=== PATIENT | female | born 1995 | race Caucasian/White ===

== ENCOUNTER 2018-04-03 13:17 | Emergency (ER) | payer BC, OTHER ==
[~2018-04-03] VITALS: Ht 162.6 cm; Wt 51.3 kg
--- NOTE | 2018-04-03 13:44 | ED General ---
General Stated Complaint: LUPUS FLARE UP/N/V/ NEG FLU TEST Source of Information: Patient Exam Limitations: No Limitations History of Present Illness Date Seen by Provider: Apr 03, 2018 Time Seen by Provider: 13:40 Initial Comments To ER with nausea and vomiting when she tries to eat, reduced urine output to the tune of about one episode of urination for 24 hour period for the past 2 days, general malaise and headache. This began on 03/31/18 when she developed a urinary tract infection. She went to urgent care [place] and was given an antibiotic but she does not know the name of it. She believes the urinary tract infection has caused her lupus to flareup. She is still on antibiotics for the urinary tract infection. She denies fevers chills or cough. She does have some rhinorrhea but no sore throat. States her primary care provider is Dr. Tom in [facility]. She is not currently on any immunomodulators or immunosuppressants for the lupus. Timing/Duration: 2-3 Days Severity: Moderate Associated Systoms: Headaches, Malaise, Nausea/Vomiting Allergies and Home Medications Allergies Coded Allergies: No Known Drug Allergies (Unverified , 04/03/18) Home Medications Cefdinir 300 Mg Capsule, 300 MG PO BID Prescribed by: BREANN ACOSTA on 04/03/18 1608 Ondansetron 8 Mg Tab.rapdis, 8 MG PO Q6H PRN for NAUSEA/VOMITING Prescribed by: BREANN ACOSTA on 04/03/18 1608 Prednisone 10 Mg Tab.ds.pk, 10 MG PO UD Take 6 tabs(60mg)daily,decrease by 1 tab(10MG)daily. Prescribed by: BREANN ACOSTA on 04/03/18 1608 Patient Home Medication List Home Medication List Reviewed: Yes Review of Systems Review of Systems Constitutional: see HPI, malaise, weakness EENTM: see HPI Respiratory: no symptoms reported Cardiovascular: no symptoms reported Genitourinary: no symptoms reported Musculoskeletal: no symptoms reported Skin: no symptoms reported Psychiatric/Neurological: No Symptoms Reported, Headache Hematologic/Lymphatic: No Symptoms Reported Past Pxwggfy-Cvykgo-Ysspvr Hx Patient Social History Recent Foreign Travel: No Contact w/Someone Who Travel: No Physical Exam Vital Signs Vital Signs - First Documented 04/03/18 13:31 Temp 98.1 Pulse 110 Resp 16 B/P (MAP) 116/71 (86) Pulse Ox 98 Capillary Refill : Height, Weight, BMI Height: '" Weight: lbs. oz. kg; BMI Method: General Appearance: No Apparent Distress, WD/WN Eyes: Bilateral Eye Normal Inspection, Bilateral Eye PERRL, Bilateral Eye EOMI HEENT: PERRL/EOMI, TMs Normal, Normal ENT Inspection, Pharynx Normal Neck: Full Range of Motion, Normal Inspection Respiratory: Normal Breath Sounds, No Accessory Muscle Use, No Respiratory Distress Cardiovascular: Normal Peripheral Pulses, Tachycardia Gastrointestinal: Normal Bowel Sounds, Non Tender, Soft Extremity: Normal Capillary Refill, Normal Inspection Neurologic/Psychiatric: Alert, Oriented x3, No Motor/Sensory Deficits Skin: Normal Color, Warm/Dry Progress/Results/Core Measures Suspected Sepsis SIRS Temperature: Pulse: Respiratory Rate: Laboratory Tests 04/03/18 11:39: White Blood Count 4.5 Blood Pressure / Mean: Laboratory Tests 04/03/18 11:39: Creatinine 0.72, Platelet Count 143, Total Bilirubin 0.6 Results/Orders Lab Results Laboratory Tests Test 04/03/18 11:39 04/03/18 15:35 Range/Units White Blood Count 4.5 4.3-11.0 10^3/uL Red Blood Count 4.57 4.35-5.85 10^6/uL Hemoglobin 12.1 11.5-16.0 G/DL Hematocrit 37 35-52 % Mean Corpuscular Volume 81 80-99 FL Mean Corpuscular Hemoglobin 27 25-34 PG Mean Corpuscular Hemoglobin Concent 33 32-36 G/DL Red Cell Distribution Width 15.1 H 10.0-14.5 % Platelet Count 143 130-400 10^3/uL Mean Platelet Volume 10.5 H 7.4-10.4 FL Neutrophils (%) (Auto) 79 H 42-75 % Lymphocytes (%) (Auto) 16 12-44 % Monocytes (%) (Auto) 5 0-12 % Eosinophils (%) (Auto) 0 0-10 % Basophils (%) (Auto) 0 0-10 % Neutrophils # (Auto) 3.5 1.8-7.8 X 10^3 Lymphocytes # (Auto) 0.7 L 1.0-4.0 X 10^3 Monocytes # (Auto) 0.2 0.0-1.0 X 10^3 Eosinophils # (Auto) 0.0 0.0-0.3 10^3/uL Basophils # (Auto) 0.0 0.0-0.1 10^3/uL Sodium Level 132 L 135-145 MMOL/L Potassium Level 4.1 3.6-5.0 MMOL/L Chloride Level 100 98-107 MMOL/L Carbon Dioxide Level 20 L 21-32 MMOL/L Anion Gap 12 5-14 MMOL/L Blood Urea Nitrogen 8 7-18 MG/DL Creatinine 0.72 0.60-1.30 MG/DL Estimat Glomerular Filtration Rate > 60 BUN/Creatinine Ratio 11 Glucose Level 88 70-105 MG/DL Calcium Level 9.2 8.5-10.1 MG/DL Corrected Calcium 9.1 8.5-10.1 MG/DL Total Bilirubin 0.6 0.1-1.0 MG/DL Aspartate Amino Transf (AST/SGOT) 30 5-34 U/L Alanine Aminotransferase (ALT/SGPT) 11 0-55 U/L Alkaline Phosphatase 51 40-136 U/L Total Protein 8.9 H 6.4-8.2 GM/DL Albumin 4.1 3.2-4.5 GM/DL Serum Test, Qualitative NEGATIVE NEGATIVE Urine Color YELLOW Urine Clarity CLEAR Urine pH 6 5-9 Urine Specific Milo 1.020 1.016-1.022 Urine Protein 2+ H NEGATIVE Urine Glucose (UA) NEGATIVE NEGATIVE Urine Ketones 4+ H NEGATIVE Urine Nitrite POSITIVE H NEGATIVE Urine Bilirubin NEGATIVE NEGATIVE Urine Urobilinogen 1 NORMAL MG/DL Urine Leukocyte Esterase 3+ H NEGATIVE Urine RBC (Auto) 1+ H NEGATIVE Urine RBC 2-5 H /HPF Urine WBC 25-50 H /HPF Urine Squamous Epithelial Cells 0-2 /HPF Urine Crystals NONE /LPF Urine Bacteria LARGE H /HPF Urine Casts NONE /LPF Urine Mucus NEGATIVE /LPF Urine Culture Indicated YES My Orders Orders - BREANN ACOSTA APRN Ua Culture If Indicated (04/03/18 13:38) Cbc With Automated Diff (04/03/18 13:38) Comprehensive Metabolic Panel (04/03/18 13:38) Iv Heplock-Insert (Order) (04/03/18 13:38) Hcg,Qualitative Serum (04/03/18 13:38) Ondansetron Injection (Zofran Injectio (04/03/18 13:45) Ketorolac Injection (Toradol Injection) (04/03/18 13:45) Lactated Ringers (Lr 1000 Ml Iv Solution (04/03/18 13:45) Fentanyl Injection (Sublimaze Injection (04/03/18 13:45) Lactated Ringers (Lr 1000 Ml Iv Solution (04/03/18 15:00) Methylprednisolone Sod Succ (Solu-Medrol (04/03/18 15:00) Butalbital/Apap/Caffeine Tab (Fioricet T (04/03/18 15:00) Urine Culture (04/03/18 15:35) Ceftriaxone For Iv Use (Rocephin For I (04/03/18 16:15) Medications Given in ED Current Medications Medications Dose Ordered Sig/Iris Route Start Time Stop Time Status Last Admin Dose Admin Acetaminophen/ Butalbital/ Caffeine 1 tab ONCE PRN PO 04/03/18 15:00 04/03/18 14:59 1 TAB Fentanyl Citrate 50 mcg ONCE ONCE IVP 04/03/18 13:45 04/03/18 13:46 DC 04/03/18 13:49 50 MCG Ketorolac Tromethamine 15 mg ONCE ONCE IVP 04/03/18 13:45 04/03/18 13:46 DC 04/03/18 13:49 15 MG Methylprednisolone Sodium Succinate 125 mg ONCE ONCE IVP 04/03/18 15:00 04/03/18 15:01 DC 04/03/18 14:59 125 MG Ondansetron HCl 8 mg ONCE ONCE IVP 04/03/18 13:45 04/03/18 13:46 DC 04/03/18 13:49 8 MG Vital Signs/I&O 04/03/18 13:31 Temp 98.1 Pulse 110 Resp 16 B/P (MAP) 116/71 (86) Pulse Ox 98 Capillary Refill : Departure Communication (Admissions) She states that when she gets the "lupus flare" like this she typically gets a steroid prescription which helps with her symptoms quite a bit. Impression Primary Impression: Urinary tract infection Additional Impression: Lupus Disposition: 01 HOME, SELF-CARE Condition: Stable Departure-Patient Inst. Decision time for Depature: 16:05 Referrals: NO,LOCAL PHYSICIAN (PCP/Family) Primary Care Physician Patient Instructions: Urinary Tract Infection, Adult (DC) Add. Discharge Instructions: 1. Your antibiotic does not seem to be helping with the bladder infection so take the new antibiotic and stop taking the old cephalexin. All of your doctor later this week for recheck and return to ER for any worsening. Scripts Prednisone (Prednisone) 10 Mg Tab.ds.pk 10 MG PO UD, #21 EA Take 6 tabs(60mg)daily,decrease by 1 tab(10MG)daily. Prov: BREANN ACOSTA APRN 04/03/18 Cefdinir (Cefdinir) 300 Mg Capsule 300 MG PO BID, #10 CAP Prov: BREANN ACOSTA APRN 04/03/18 Ondansetron (Ondansetron Odt) 8 Mg Tab.rapdis 8 MG PO Q6H PRN for NAUSEA/VOMITING, #10 TAB Prov: BREANN ACOSTA APRN 04/03/18 Work/School Note: Work Release Form Date Seen in the Emergency Department: Apr 03, 2018 Return to Work: Apr 06, 2018 BREANN ACOSTA APRN Apr 03, 2018 13:44
[2018-04-03] MEDS ORDERED: fentaNYL INJECTION 100 MCG/2 ML AMP IVP ONE (13:45)
[2018-04-03] MEDS ORDERED: KETOROLAC 30 MG/ML VIAL IVP ONE (13:45)
[2018-04-03] MEDS ORDERED: LACTATED RINGERS 1,000 ML IV SCH ×2 (13:45→15:00)
[2018-04-03] MEDS ORDERED: ONDANSETRON 4 MG/2 ML (SDV) Z0FRAN IVP ONE (13:45)
[2018-04-03 13:48] LABS: BASOPHILS % (AUTO) 0 % (0-10); EOSINOPHILS % (AUTO) 0 % (0-10); HEMATOCRIT 37 % (35-52); HEMOGLOBIN 12.1 G/DL (11.5-16.0); LYMPHOCYTES # (AUTO) 0.7 X 10^3 (1.0-4.0); LYMPHOCYTES % (AUTO) 16 % (12-44); MEAN CORPUSCULAR HEMOGLOBIN 27 PG (25-34); MEAN CORPUSCULAR HGB CONC 33 G/DL (32-36); MEAN CORPUSCULAR VOLUME 81 FL (80-99); MEAN PLATELET VOLUME 10.5 FL (7.4-10.4); MONOCYTES # (AUTO) 0.2 X 10^3 (0.0-1.0); MONOCYTES % (AUTO) 5 % (0-12); NEUTROPHILS # (AUTO) 3.5 X 10^3 (1.8-7.8); NEUTROPHILS % (AUTO) 79 % (42-75); PLATELET COUNT 143 10^3/uL (130-400); RED BLOOD COUNT 4.57 10^6/uL (4.35-5.85); RED CELL DISTRIBUTION WIDTH 15.1 % (10.0-14.5); WHITE BLOOD COUNT 4.5 10^3/uL (4.3-11.0)
[2018-04-03 14:06] LABS: ALANINE AMINOTRANSFERASE 11 U/L (0-55); ALBUMIN 4.1 GM/DL (3.2-4.5); ALKALINE PHOSPHATASE 51 U/L (40-136); BILIRUBIN,TOTAL 0.6 MG/DL (0.1-1.0); BUN/CREATININE RATIO 11; CALCIUM 9.2 MG/DL (8.5-10.1); CARBON DIOXIDE 20 MMOL/L (21-32); CHLORIDE 100 MMOL/L (98-107); CREATININE SERUM 0.72 MG/DL (0.60-1.30); GFR ESTIMATED > 60; GLUCOSE 88 MG/DL (70-105); POTASSIUM 4.1 MMOL/L (3.6-5.0); SODIUM 132 MMOL/L (135-145); TOTAL PROTEIN 8.9 GM/DL (6.4-8.2)
[2018-04-03] MEDS ORDERED: methylPREDNISolone 125 MG (Solu-MEDROL) VIAL IVP ONE (15:00)
[2018-04-03] MEDS ORDERED: ACET/BUTAL/CAFF (FIORICET) TAB PO PRN (15:00)
[2018-04-03 15:45] LABS: BILIRUBIN,URINE NEGATIVE (NEGATIVE); CLARITY,URINE CLEAR; COLOR,URINE YELLOW; GLUCOSE, URINE (UA) NEGATIVE (NEGATIVE); KETONES,URINE 4+ (NEGATIVE); LEUKOCYTE ESTERASE ,URINE 3+ (NEGATIVE); NITRITE,URINE POSITIVE (NEGATIVE); PH,URINE 6 (5-9); PROTEIN,URINE 2+ (NEGATIVE); UROBILINOGEN,URINE 1 MG/DL (NORMAL)
[2018-04-03 16:01] LABS: BACTERIA,URINE LARGE /HPF; SQUAMOUS EPITHELIAL CELL,UR 0-2 /HPF; WBC,URINE 25-50 /HPF
[2018-04-03] MEDS ORDERED: PRED10TA22 PO ×2 (16:08→16:12)
[2018-04-03] MEDS ORDERED: ONDA8TAB13 PO (16:08)
[2018-04-03] MEDS ORDERED: CEFD300C3 PO (16:08)
[2018-04-03] MEDS ORDERED: cefTRIAXone FOR IV USE 1,000 MG in NS (IVPB) 50 ML IV ONE (16:15)
[2018-04-03 16:26] VITALS: BP 106/66
== END 2018-04-03 16:26 | disposition home or self-care (01) ==
LOC: ER 13:19
DX: N39.0 Urinary tract infection, site not specified (principal); M32.9 Systemic lupus erythematosus, unspecified; Z79.52 Long term (current) use of systemic steroids
CPT/HCPCS: 36415; 80053; 81000; 84703; 85025; 87077; 87088; 87186

== ENCOUNTER → 2018-05-30 | Outpatient (CLI) | payer BC ==
[~2018-05-30] MED LIST: CEFD300C3 PO; ONDA8TAB13 PO; PRED10TA22 PO
== END ==
LOC: WOUNDCARE 09:15
PROVIDERS: ATTEND Surgery
DX: I70.25 Atherosclerosis of native arteries of other extremities with ulceration (principal); L98.492 Non-pressure chronic ulcer of skin of other sites with fat layer exposed; M32.10 Systemic lupus erythematosus, organ or system involvement unspecified; I73.01 Raynaud's syndrome with gangrene
CPT/HCPCS: 99214

== ENCOUNTER → 2018-06-07 | Outpatient (CLI) | payer BC | LOC: WOUNDCARE 12:33 | PROVIDERS: ATTEND Surgery | DX: I73.01 Raynaud's syndrome with gangrene (principal); M32.10 Systemic lupus erythematosus, organ or system involvement unspecified; L98.492 Non-pressure chronic ulcer of skin of other sites with fat layer exposed | CPT/HCPCS: 99213 ==

== ENCOUNTER → 2018-06-21 | Outpatient (CLI) | payer BC | LOC: WOUNDCARE 12:27 | PROVIDERS: ATTEND Surgery | DX: I73.01 Raynaud's syndrome with gangrene (principal); M32.10 Systemic lupus erythematosus, organ or system involvement unspecified; L98.492 Non-pressure chronic ulcer of skin of other sites with fat layer exposed ==

== ENCOUNTER → 2018-07-05 | Outpatient (CLI) | payer BC | LOC: WOUNDCARE 12:46 | PROVIDERS: ATTEND Surgery | DX: I73.01 Raynaud's syndrome with gangrene (principal); M32.10 Systemic lupus erythematosus, organ or system involvement unspecified; L98.492 Non-pressure chronic ulcer of skin of other sites with fat layer exposed | CPT/HCPCS: 99212 ==

== ENCOUNTER → 2018-07-19 | Outpatient (CLI) | payer BC | LOC: WOUNDCARE 12:39 | PROVIDERS: ATTEND Surgery | DX: I73.01 Raynaud's syndrome with gangrene (principal); M32.10 Systemic lupus erythematosus, organ or system involvement unspecified; L98.492 Non-pressure chronic ulcer of skin of other sites with fat layer exposed | CPT/HCPCS: 99212 ==

== ENCOUNTER 2018-12-21 16:22 | Outpatient (RCR) | payer BC ==
[2018-12-21 18:41] LABS: POTASSIUM 4.1 MMOL/L (3.6-5.0); SODIUM 133 MMOL/L (135-145)
[2018-12-21 18:42] LABS: ALANINE AMINOTRANSFERASE 9 U/L (0-55); ALBUMIN 4.4 GM/DL (3.2-4.5); ALKALINE PHOSPHATASE 73 U/L (40-136); BILIRUBIN,TOTAL 0.9 MG/DL (0.1-1.0); BUN/CREATININE RATIO 20; CALCIUM 9.4 MG/DL (8.5-10.1); CARBON DIOXIDE 23 MMOL/L (21-32); CHLORIDE 97 MMOL/L (98-107); GFR ESTIMATED > 60; GLUCOSE 110 MG/DL (70-105); TOTAL PROTEIN 8.6 GM/DL (6.4-8.2)
[2018-12-21 18:43] LABS: BASOPHILS % (AUTO) 0 % (0-10); EOSINOPHILS % (AUTO) 0 % (0-10); HEMATOCRIT 39 % (35-52); HEMOGLOBIN 12.6 G/DL (11.5-16.0); LYMPHOCYTES % (AUTO) 8 % (12-44); MEAN CORPUSCULAR HEMOGLOBIN 27 PG (25-34); MEAN CORPUSCULAR HGB CONC 33 G/DL (32-36); MEAN CORPUSCULAR VOLUME 83 FL (80-99); MEAN PLATELET VOLUME 9.8 FL (7.4-10.4); MONOCYTES % (AUTO) 6 % (0-12); NEUTROPHILS # (AUTO) 4.9 X 10^3 (1.8-7.8); NEUTROPHILS % (AUTO) 86 % (42-75); PLATELET COUNT 193 10^3/uL (130-400); RED CELL DISTRIBUTION WIDTH 12.6 % (10.0-14.5); WHITE BLOOD COUNT 5.7 10^3/uL (4.3-11.0)
[2018-12-21 18:44] LABS: BAND NEUTROPHILS 25 %; LYMPHOCYTES # (AUTO) 0.5 X 10^3 (1.0-4.0); LYMPHOCYTES % (MANUAL) 8 %; MONOCYTES # (AUTO) 0.4 X 10^3 (0.0-1.0); MONOCYTES % (MANUAL) 5 %; NEUTROPHILS % (MANUAL) 62 %; RBC MORPH NORMAL
[2018-12-21 18:45] LABS: CLARITY,URINE CLEAR; COLOR,URINE AMBER; ERYTHROCYTE SEDIMENTATION RATE 47 MM/HR (0-20); GLUCOSE, URINE (UA) NEGATIVE (NEGATIVE); KETONES,URINE 2+ (NEGATIVE); NITRITE,URINE NEGATIVE (NEGATIVE); PH,URINE 5.5 (5-9); PROTEIN,URINE TRACE (NEGATIVE)
[2018-12-21 18:46] LABS: BACTERIA,URINE FEW /HPF; BILIRUBIN,URINE 1+ (NEGATIVE); LEUKOCYTE ESTERASE ,URINE NEGATIVE (NEGATIVE); WBC,URINE RARE /HPF
== END 2019-03-21 | disposition home or self-care (01) ==
LOC: EDSTATUS 16:22 → LAB FS 16:22
PROVIDERS: ATTEND Internal Medicine Rheumatology
DX: L93.0 Discoid lupus erythematosus (principal)
CPT/HCPCS: 36415; 80053; 81000; 82570; 84156; 85007; 85027; 85652; 86141; 86160; 86225

== ENCOUNTER → 2019-07-13 | Outpatient (CLI) | payer BC ==
[2019-07-13 15:30] LABS: HEMATOCRIT 40 % (35-52); HEMOGLOBIN 13.2 G/DL (11.5-16.0); LYMPHOCYTES % (AUTO) 11 % (12-44); MEAN CORPUSCULAR HEMOGLOBIN 28 PG (25-34); MEAN CORPUSCULAR HGB CONC 33 G/DL (32-36); MEAN CORPUSCULAR VOLUME 85 FL (80-99); MEAN PLATELET VOLUME 9.4 FL (7.4-10.4); PLATELET COUNT 189 10^3/uL (130-400); RED CELL DISTRIBUTION WIDTH 15.4 % (10.0-14.5); WHITE BLOOD COUNT 4.5 10^3/uL (4.3-11.0)
[2019-07-13 15:31] LABS: BASOPHILS % (AUTO) 0 % (0-10); EOSINOPHILS % (AUTO) 0 % (0-10); LYMPHOCYTES # (AUTO) 0.5 X 10^3 (1.0-4.0); MONOCYTES # (AUTO) 0.2 X 10^3 (0.0-1.0); MONOCYTES % (AUTO) 5 % (0-12); NEUTROPHILS # (AUTO) 3.8 X 10^3 (1.8-7.8); NEUTROPHILS % (AUTO) 84 % (42-75)
[2019-07-13 15:32] LABS: ERYTHROCYTE SEDIMENTATION RATE 32 MM/HR (0-20)
[2019-07-13 15:43] LABS: BUN/CREATININE RATIO 15; CARBON DIOXIDE 24 MMOL/L (21-32); CHLORIDE 98 MMOL/L (98-107); CREATININE SERUM 0.62 MG/DL (0.60-1.30); GFR ESTIMATED > 60; POTASSIUM 4.2 MMOL/L (3.6-5.0); SODIUM 134 MMOL/L (135-145)
[2019-07-13 15:44] LABS: ALANINE AMINOTRANSFERASE 23 U/L (0-55); ALKALINE PHOSPHATASE 59 U/L (40-136); BILIRUBIN,TOTAL 0.7 MG/DL (0.1-1.0); CALCIUM 9.6 MG/DL (8.5-10.1); GLUCOSE 115 MG/DL (70-105); TOTAL PROTEIN 7.6 GM/DL (6.4-8.2)
== END ==
LOC: LAB FS 14:46
PROVIDERS: ATTEND Internal Medicine Rheumatology
DX: L93.0 Discoid lupus erythematosus (principal)
CPT/HCPCS: 36415; 80053; 85025; 85652; 86141; 86160

== ENCOUNTER 2020-03-10 11:14 | Emergency (ER) | payer BC ==
[~2020-03-10] VITALS: Ht 165.1 cm; Wt 65.9 kg
--- NOTE | 2020-03-10 11:40 | ED GU-Female ---
General Chief Complaint: Female Reproductive Stated Complaint: FALL Source: patient History of Present Illness Date Seen by Provider: Mar 10, 2020 Time Seen by Provider: 11:40 Initial Comments 24 yo female presenting with complaint of pain in right lower abdomen with urination and urinary frequency and hesitancy for the last week. she denies any fever or chills. She has had no vaginal bleeding pain and no hematuria. She is approximately 26 weeks and this is her first . She follows with Dr. Scott out of [place]. Her next appointment is the last week of February. She has no pain in her pelvis or uterus other than when she goes to urinate. Allergies and Home Medications Allergies Coded Allergies: No Known Drug Allergies (Unverified , 04/03/18) Home Medications Cefdinir 300 Mg Capsule, 300 MG PO BID Prescribed by: BREANN ACOSTA on 04/03/18 1608 Cephalexin 500 Mg Tablet, 500 MG PO TID Prescribed by: YULIA MA on 03/10/20 1219 Ondansetron 8 Mg Tab.rapdis, 8 MG PO Q6H PRN for NAUSEA/VOMITING Prescribed by: BREANN ACOSTA on 04/03/18 1608 Prednisone 10 Mg Tab.ds.pk, 10 MG PO UD Take 6 tabs(60mg)daily,decrease by 1 tab(10MG)daily. Prescribed by: BREANN ACOSTA on 04/03/18 1612 Patient Home Medication List Home Medication List Reviewed: Yes Review of Systems Review of Systems Constitutional: No chills, No fever, No malaise EENTM: no symptoms reported Respiratory: no symptoms reported Cardiovascular: no symptoms reported Gastrointestinal: no symptoms reported Genitourinary: see HPI : Yes Expected Date of Delivery: Jun 20, 2020 Musculoskeletal: joint pain (left knee pain ) Skin: no symptoms reported Psychiatric/Neurological: No Symptoms Reported Past Cmazpzy-Vidxkh-Ugwjol Hx Past Med/Social Hx: Reviewed Nursing Past Med/Soc Hx Patient Social History Alcohol Use: Denies Use Recreational Drug Use: No Smoking Status: Never a Smoker 2nd Hand Smoke Exposure: No Recent Hopitalizations: No Physical Abuse: No Sexual Abuse: No Mistreated: No Fear: No Seasonal Allergies Seasonal Allergies: No Past Medical History Surgeries: No Orthopedic, Tonsillectomy Respiratory: No Cardiac: No Neurological: No 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 oz. 51.385039ot; BMI Method:Stated General Appearance: WD/WN, no apparent distress Cardiovascular: normal peripheral pulses, regular rate, rhythm Respiratory: chest non-tender, lungs clear, normal breath sounds, no respiratory distress, no accessory muscle use Gastrointestinal: normal bowel sounds, soft, no pulsatile mass, other (gravid uterus) Extremities: normal range of motion, normal capillary refill Neurologic/Psychiatric: alert, oriented x 3 Skin: normal color, warm/dry Progress/Results/Core Measures Suspected Sepsis SIRS Temperature: Pulse: Respiratory Rate: Blood Pressure / Mean: Results/Orders Lab Results Laboratory Tests Test 03/10/20 11:30 Range/Units Urine Color YELLOW Urine Clarity CLEAR Urine pH 6.0 5-9 Urine Specific [employer] 1.025 H 1.016-1.022 Urine Protein NEGATIVE NEGATIVE Urine Glucose (UA) NEGATIVE NEGATIVE Urine Ketones TRACE H NEGATIVE Urine Nitrite NEGATIVE NEGATIVE Urine Bilirubin NEGATIVE NEGATIVE Urine Urobilinogen 0.2 < = 1.0 MG/DL Urine Leukocyte Esterase NEGATIVE NEGATIVE Urine RBC (Auto) NEGATIVE NEGATIVE Urine RBC NONE /HPF Urine WBC 2-5 /HPF Urine Squamous Epithelial Cells 10-25 H /HPF Urine Crystals NONE /LPF Urine Bacteria MODERATE H /HPF Urine Casts NONE /LPF Urine Mucus MODERATE H /LPF Urine Culture Indicated NO My Orders Orders - YULIA MA MD Heart Tones (03/10/20 11:23) Ua Culture If Indicated (03/10/20 11:33) Vital Signs/I&O 03/10/20 11:15 Temp 36.5 Pulse 115 Resp 18 B/P (MAP) 101/62 (75) Pulse Ox 98 O2 Delivery Room Air Capillary Refill : Progress Note : Progress Note normal FHTs in 140s to 150s. UA shows bacteria with some epithelial cells. She reports she has frequent UTI and it gets bad and flares up her lupus if she does not treat them early. Will cover with cephalexin 500 tid. encourage follow up and recheck with OB if having more problems/concerns Departure Impression Primary Impression: UTI (urinary tract infection) in in second trimester Disposition: 01 HOME, SELF-CARE Condition: Stable Departure-Patient Inst. Decision time for Depature: 12:20 Referrals: SALLIE SCOTT MD NO,LOCAL PHYSICIAN (PCP) Primary Care Physician Patient Instructions: Urinary Tract Infections in Add. Discharge Instructions: Make sure you are drinking plenty of water and cranberry juice to help flush out your urine. Take the full course of antibiotics to treat infection in urine. Follow up with Dr. Scott if not improving in next 2-3 days or sooner if more concerns/problems All discharge instructions reviewed with patient and/or family. Voiced understanding. Scripts Cephalexin (Cephalexin) 500 Mg Tablet 500 MG PO TID for UTI for 10 Days, #30 TAB 0 Refills Prov: YULIA MA MD 03/10/20 YULIA MA MD Mar 10, 2020 11:40
[2020-03-10 11:48] LABS: BACTERIA,URINE MODERATE /HPF; BILIRUBIN,URINE NEGATIVE (NEGATIVE); CLARITY,URINE CLEAR; COLOR,URINE YELLOW; GLUCOSE, URINE (UA) NEGATIVE (NEGATIVE); KETONES,URINE TRACE (NEGATIVE); LEUKOCYTE ESTERASE ,URINE NEGATIVE (NEGATIVE); NITRITE,URINE NEGATIVE (NEGATIVE); PROTEIN,URINE NEGATIVE (NEGATIVE)
[2020-03-10] MEDS ORDERED: CEPH500T PO (12:19)
[2020-03-10 12:20] VITALS: BP 105/61
== END 2020-03-10 12:20 | disposition home or self-care (01) ==
LOC: EDUNIT# 11:14 → ER FS 11:16
DX: O23.42 Unspecified infection of urinary tract in pregnancy, second trimester (principal); Z3A.26 26 weeks gestation of pregnancy; Z79.52 Long term (current) use of systemic steroids
CPT/HCPCS: 81000

== ENCOUNTER 2020-06-05 07:00 | Inpatient (IN) | payer BC ==
[2020-06-05] VITALS (64 sets, daily range): BP systolic 103–135; BP diastolic 51–79
[~2020-06-05] VITALS: Ht 165.1 cm; Wt 74.8 kg
[~2020-06-05 07:00] MED LIST changes: +CEPH500T PO
[2020-06-05] MEDS ORDERED: OXYTOCIN PRE-MIX DRIP 500 ML IV SCH (07:45)
--- NOTE | 2020-06-05 07:50 | History & Physical ---
History and Physical Date Seen by Provider: Jun 05, 2020 Time Seen by Provider: 07:48 This patient is a 24-year-old 1 female currently at 38 weeks gestation admitted for induction of labor. Her is complicated by systemic lupus erythematosus which is stable on Plaquenil. She denies rupture membranes or bleeding. Her GBS culture after 35 weeks gestation was negative. She had noted a relatively recent decrease in movement and is feeling an occasional contraction Allergies are none Medications are vitamins and Plaquenil Medical social and surgical history is all per the antepartum record HEENT exam is normal Neck is supple no lymphadenopathy no thyromegaly Abdomen is gravid soft nontender nondistended Extremities show no clubbing cyanosis. There is no Homans' sign. Pelvic exam currently shows a cervix fingertip to 1 cm / 50%/-2 station/vertex/intact Assessment and plan 38-week complicated by systemic lupus erythematosus. Patient is admitted now for induction of labor. We anticipate vaginal delivery but would be prepared for if warranted for maternal or indications 38-week complicated by SLE Allergies and Home Medications Allergies Coded Allergies: No Known Drug Allergies (Unverified , 04/03/18) Home Medications Cefdinir 300 Mg Capsule, 300 MG PO BID Prescribed by: BREANN ACOSTA on 04/03/18 1608 Cephalexin 500 Mg Tablet, 500 MG PO TID Prescribed by: YULIA MA on 03/10/20 1219 Ondansetron 8 Mg Tab.rapdis, 8 MG PO Q6H PRN for NAUSEA/VOMITING Prescribed by: BREANN ACOSTA on 04/03/18 1608 Prednisone 10 Mg Tab.ds.pk, 10 MG PO UD Take 6 tabs(60mg)daily,decrease by 1 tab(10MG)daily. Prescribed by: BREANN ACOSTA on 04/03/18 1612 Patient Home Medication List Home Medication List Reviewed: Yes SALLIE VELASQUEZ MD Jun 05, 2020 07:50
[2020-06-05 07:57] LABS: BASOPHILS % (AUTO) 0 % (0-10); EOSINOPHILS # (AUTO) 0.1 10^3/uL (0.0-0.3); EOSINOPHILS % (AUTO) 2 % (0-10); HEMATOCRIT 35 % (35-52); HEMOGLOBIN 11.5 g/dL (11.5-16.0); LYMPHOCYTES # (AUTO) 0.9 10^3/uL (1.0-4.0); LYMPHOCYTES % (AUTO) 14 % (12-44); MEAN CORPUSCULAR HEMOGLOBIN 27 pg (25-34); MEAN CORPUSCULAR HGB CONC 33 g/dL (32-36); MEAN CORPUSCULAR VOLUME 82 fL (80-99); MEAN PLATELET VOLUME 10.7 fL (9.0-12.2); MONOCYTES # (AUTO) 0.5 10^3/uL (0.0-1.0); MONOCYTES % (AUTO) 8 % (0-12); NEUTROPHILS # (AUTO) 4.7 10^3/uL (1.8-7.8); NEUTROPHILS % (AUTO) 75 % (42-75); PLATELET COUNT 259 10^3/uL (130-400); WHITE BLOOD COUNT 6.3 10^3/uL (4.3-11.0)
[2020-06-05] MEDS: D5 LR IV SOLUTION 1,000 ML IV SCH ×3 (07:58→21:06)
[2020-06-05] MEDS ORDERED: ONDANSETRON 4 MG/2 ML (SDV) Z0FRAN ONE (14:53)
[2020-06-05] MEDS ORDERED: fentaNYL 2 mcg/ml BUPIVA 0.125 100 ML ONE (14:54)
[2020-06-05] MEDS ORDERED: fentaNYL INJ 100 MCG/2 ML AMP ONE (14:55)
[2020-06-05] MEDS ORDERED: BUPIVACAINE 0.25% 30 ML (SENSORCAINE) VIAL ONE (14:55)
[2020-06-05] MEDS ORDERED: diphenhydrAMINE 50 MG/ML INJ (BENADRYL) IV PRN (15:00)
[2020-06-05] MEDS ORDERED: LACTATED RINGERS 1,000 ML IV ONE ×2 (15:00→19:45)
[2020-06-05] MEDS ORDERED: CATHETER FLUSH 10 ML SYR IV PRN (15:00)
[2020-06-05] MEDS ORDERED: NALOXONE 0.4 MG/ML 1 ML (NARCAN) VIAL IV PRN (15:00)
[2020-06-05] MEDS ORDERED: ONDANSETRON 4 MG/2 ML (SDV) Z0FRAN IV PRN (15:00)
[2020-06-05] MEDS ORDERED: ONDANSETRON 4 MG/2 ML (SDV) Z0FRAN IVP NR (15:00)
[2020-06-05] MEDS: fentaNYL 2 mcg/ml BUPIVA 0.125 100 ML IV SCH ×2 (15:21→23:50)
--- NOTE | 2020-06-05 19:32 | Progress Note ---
Standard Progress Note Progress Notes/Assess & Plan Date Seen by a Provider: Jun 05, 2020 Time Seen by a Provider: 19:24 Progress/Assessment & Plan Patient is without complaint. She is comfortable with the epidural. She has been on Pitocin now with the rate increased to 40 milliunits per minute -at this point we have discontinued Pitocin to allow the patient and the baby to rest. A lengthy discussion regarding management options at this point. Her cervical exam is right at 3 cm 80% or so effaced the presenting part is showed good descent through the day down now to about a -1 station. I think the situation appears favorable for vaginal delivery which is what the patient would prefer. She does understand there is a potential for at any time for indications or maternal indications and/or eventually if she does fail to make adequate progress in labor. Plan I will discontinue the Pitocin for several hours to allow the patient to rest better have a meal and then resume the Pitocin for an abbreviated type serial induction. heart rate has been category 1 throughout the day patient has tolerated labor well particularly after placement of the epidural and patient is happy w ith and agrees with this plan. Lab work is as follows Laboratory Tests 06/05/20 07:31 Vitals are as follows Vital Signs Date Time Temp Pulse Resp B/P (MAP) Pulse Ox O2 Delivery O2 Flow Rate FiO2 06/05/20 17:30 99 18 119/60 (79) 98 Room Air 06/05/20 17:15 105 18 119/59 (79) 98 Room Air 06/05/20 17:00 89 18 106/65 (79) 98 Room Air 06/05/20 16:45 100 18 112/55 (74) 99 Room Air 06/05/20 16:30 86 18 112/55 (74) 99 Room Air 06/05/20 16:15 103 18 118/65 (82) 99 Room Air 06/05/20 16:00 101 18 120/57 (78) 98 Room Air 06/05/20 15:45 96 18 106/58 (74) 98 Room Air 06/05/20 15:40 97 18 107/57 (74) 96 Room Air 06/05/20 15:35 97 18 118/60 (79) 98 Room Air 06/05/20 15:30 91 18 113/56 (75) 98 Room Air 06/05/20 15:25 94 18 115/56 (75) 98 Room Air 06/05/20 15:20 106 18 119/56 (77) 98 Room Air 06/05/20 15:15 99 18 116/56 (76) 98 Room Air 06/05/20 15:10 103 18 122/69 (86) 98 Room Air 06/05/20 15:05 96 18 113/64 (80) 98 Room Air 06/05/20 15:00 92 18 135/69 (91) Room Air 06/05/20 14:45 96 18 125/73 (90) Room Air 06/05/20 14:30 Room Air 06/05/20 14:15 90 18 133/63 (86) Room Air 06/05/20 14:00 90 18 126/71 (89) Room Air 06/05/20 13:45 88 18 134/78 (96) Room Air 06/05/20 13:30 87 18 123/72 (89) Room Air 06/05/20 13:15 93 18 132/73 (92) Room Air 06/05/20 13:00 111 18 119/60 (79) Room Air 06/05/20 12:45 100 18 123/59 (80) Room Air 06/05/20 12:30 107 18 127/65 (85) Room Air 06/05/20 12:15 102 18 116/62 (80) Room Air 06/05/20 12:00 90 18 113/71 (85) Room Air 06/05/20 11:45 110 18 112/57 (75) Room Air 06/05/20 11:30 100 18 120/56 (77) Room Air 06/05/20 11:15 106 18 118/57 (77) Room Air 06/05/20 11:08 37.1 06/05/20 11:00 98 18 130/57 (81) Room Air 06/05/20 10:45 99 18 130/63 (85) Room Air 06/05/20 10:30 96 18 120/79 (93) Room Air 06/05/20 10:15 86 18 113/57 (75) Room Air 06/05/20 10:00 96 18 110/56 (74) Room Air 06/05/20 09:45 96 18 110/56 (74) Room Air 06/05/20 09:30 91 18 112/56 (74) Room Air 06/05/20 09:15 18 Room Air 06/05/20 09:00 91 18 119/66 (83) Room Air 06/05/20 08:45 94 18 123/73 (90) Room Air 06/05/20 08:30 95 18 123/73 (90) Room Air 06/05/20 08:15 95 18 123/73 (90) Room Air 06/05/20 08:00 95 18 123/73 (90) Room Air 06/05/20 07:23 36.9 103 18 98 Room Air 06/05/20 07:23 36.9 103 18 130/74 (92) 98 Room Air Abdomen is benign Pelvic exam shows a cervix right at 3 cm dilated somewhat stretchy and flexible, presenting part is the vertex at -1 station, cervix is anterior and soft Assessment and plan day 1 Pitocin induction of labor in a patient with systemic lupus erythematosus was stable on her Plaquenil. Plan is as noted above we do anticipate a vaginal delivery would be prepared for SALLIE VELASQUEZ MD Jun 05, 2020 19:32
[2020-06-06] VITALS (46 sets, daily range): BP systolic 90–136; BP diastolic 46–80
[2020-06-06] MEDS: D5 LR IV SOLUTION 1,000 ML IV SCH ×2 (03:43→14:33)
[2020-06-06] MEDS ORDERED: metroNIDAZOLE 500MG/100ML IVPB 100 ML IV ONE (07:30)
[2020-06-06] MEDS ORDERED: ceFAZolin INJECTION 2,000 MG in WATER (STERILE) FOR INJECTION 10 ML IV ONE (07:30)
[2020-06-06] MEDS ORDERED: D5 LR IV SOLUTION 1,000 ML IV SCH ×2 (07:30→11:15)
[2020-06-06] MEDS ORDERED: OXYC1TAB12 PO (07:34)
[2020-06-06] MEDS ORDERED: DOCU-143 PO (07:34)
[2020-06-06] MEDS ORDERED: IBUP-1780 PO (07:34)
--- NOTE | 2020-06-06 07:35 | Discharge Inst-Surgical ---
Discharge Inst-Surgical Depart Medication/Instructions New, Converted or Re-Newed RX: RX on Chart Consults/Follow Up Patient Instructions: as directed Orders & Referrals Follow Up Appt: RTC 1 week for incision check. Call to make follow up appt. for patient in 4 weeks. Wound Care: Remove rosa, apply benzoin and steri strips. Activity Per routine post instructions. Please call in RX to patient pharmacy. Diet as tolerated Patient may shower or tub bathe as desired. Continue home meds Activity Activity as Tolerated: No Diet Discharge Diet: No Restrictions SALLIE VELASQUEZ MD Jun 06, 2020 07:35
[2020-06-06] MEDS: LACTATED RINGERS 1,000 ML IV PRN ×2 (07:53→09:11)
[2020-06-06] MEDS ORDERED: METOCLOPRAMIDE INJ 10 MG/2 ML (REGLAN) IV ONE (08:00)
[2020-06-06] MEDS ORDERED: FAMOTIDINE 20MG/2ML IV (PEPCID) IV ONE (08:00)
[2020-06-06] MEDS ORDERED: CITRIC ACID/SOB CIT (BICITRA) 30 ML UDC PO ONE (08:00)
[2020-06-06] MEDS: fentaNYL 2 mcg/ml BUPIVA 0.125 100 ML IV SCH ×2 (08:50→14:33)
[2020-06-06] MEDS ORDERED: KETOROLAC 30 MG/ML VIAL ONE (10:42)
[2020-06-06] MEDS ORDERED: ONDANSETRON 4 MG/2 ML (SDV) Z0FRAN ONE (10:42)
[2020-06-06] MEDS ORDERED: LIDOCAINE PF 2% 5 ML (XYLOCAINE) VIAL ONE (10:43)
[2020-06-06] MEDS: KETOROLAC 30 MG/ML VIAL IVP SCH ×3 (10:45→23:46)
[2020-06-06] MEDS ORDERED: BUPIVACAINE 0.5% 30 ML (SENSORCAINE) VIAL ONE (11:00)
[2020-06-06] MEDS ORDERED: TETANUS,DIPTH,PERTUSS P/F (BOOSTRIX) 0.5 ML VIAL IM ONE (11:15)
[2020-06-06] MEDS ORDERED: ONDANSETRON 4 MG/2 ML (SDV) Z0FRAN IVP PRN (11:15)
[2020-06-06] MEDS ORDERED: MEASLES,MUMPS,RUBELLA 1 EA INJ SC ONE (11:15)
[2020-06-06] MEDS: fentaNYL INJ 100 MCG/2 ML AMP IVP PRN ×2 (11:38→12:58)
[2020-06-06] MEDS: oxyCODONE/APAP 10/325MG (PERCOCET 10) TABLET PO PRN ×2 (12:50→20:24)
[2020-06-06] MEDS: OXYTOCIN PRE-MIX DRIP 500 ML IV SCH ×2 (12:51→16:50)
--- NOTE | 2020-06-06 14:35 | OPERATIVE REPORT ---
DATE OF SERVICE: 06/06/2020 PREOPERATIVE DIAGNOSES: Term in labor with failure to progress/failure to descend. POSTOPERATIVE DIAGNOSES: Term in labor with failure to progress/failure to descend. Right asynclitism and transverse arrest. OPERATIVE PROCEDURE: Primary low transverse delivery of a viable male infant with Apgars of 5, 8 and 9 at 1, 5, and 10 minutes, weight of 7 pounds 1 ounce, time of 10:26 and a cord blood pH of 7.30. OPERATIVE DESCRIPTION: With the patient in the supine position under satisfactory epidural anesthesia, she was prepped and draped in the usual fashion for abdominal surgery. Parra catheter had been placed in the urinary bladder during labor that was left to dependent drainage. A Pfannenstiel incision was made through skin with scalpel, the patient's abdomen entered in the usual manner. Bladder retractor placed in position. Clean scalpel used to make a 4 cm hysterotomy incision transversely across the lower uterine segment. That incision was extended bluntly. A small amount of amniotic fluid was released. The incision was extended bluntly and a vigorous viable male infant was delivered via the uterine incision. had Apgars and stats as noted above. The infant was bulb suctioned on delivery of the head and again on completion of delivery. The infant was delivered from a right occiput transverse, right asynclitism position. After completion of delivery, the was bulb suctioned again while the umbilical cord was doubly clamped and cut and the infant passed to the pediatric nurse in attendance for delivery. Cord bloods were obtained. The placenta delivered promptly spontaneously Padilla. It was normal with a 3-vessel cord. The uterus was exteriorized the interior was wiped, cleaned with a wet laparotomy sponge. Uterine incision then closed with running locked suture of 2-0 Vicryl. Hemostasis was satisfactory, but the uterus was quite boggy and atonic. A modified B-Scott suture was placed using 2-0 chromic sutures in the usual modified manner. This compressed the uterus nicely. The uterus was returned to abdominal cavity. All blood clot and debris was removed from the abdominal cavity. With sponge and needle counts correct, hemostasis assured. Anterior parietal peritoneum was closed with running suture of 2-0 Vicryl. Rectus muscles were closed with that suture as well. The rectus fascia was closed with 2-0 Vicryl, subcutaneous tissue was closed with 2-0 Vicryl and the skin was stapled. Sponge and needle counts were correct on completion of procedure. Estimated blood loss was around 250 mL. The patient tolerated the procedure well and was transferred to the recovery room in stable condition. The infant had been taken stable to the full-term nursery under the care of the pediatric nurse. Job ID: [id number] DocumentID: [id number] Dictated Date: 06/06/2020 11:03:19 Saddle Stitching Machine Operator Date: 06/06/2020 14:34:10 Dictated By: SALLIE VELASQUEZ MD MTDD
[2020-06-06] MEDS: DOCUSATE SODIUM 100 MG (COLACE) CAP PO SCH (20:21)
[2020-06-06] MEDS ORDERED: DOCUSATE SODIUM 100 MG (COLACE) CAP PO SCH (21:00)
[2020-06-07 03:26] VITALS: BP 117/57
[2020-06-07] MEDS: oxyCODONE/APAP 10/325MG (PERCOCET 10) TABLET PO PRN ×3 (03:26→20:21)
[2020-06-07] MEDS ORDERED: IBUPROFEN 800 MG (MOTRIN) TAB PO ONE (05:25)
[2020-06-07] MEDS: KETOROLAC 30 MG/ML VIAL IVP SCH (05:40)
[2020-06-07] MEDS: DOCUSATE SODIUM 100 MG (COLACE) CAP PO SCH (09:44)
[2020-06-07 09:57] VITALS: BP 112/57
[2020-06-07] MEDS: IBUPROFEN 800 MG (MOTRIN) TAB PO SCH ×2 (12:43→18:19)
[2020-06-07 12:45] VITALS: BP 116/67
--- NOTE | 2020-06-07 13:38 | Anesthesia-Regional Post-Op ---
Regional Patient Condition Mental Status: Alert, Oriented x3 Circulation: Same as Pre-Op Headache: Absent Sensation: Full Recovery Motor Block: Absent Post Op Complications Complications None Follow Up Care/Instructions Patient Instructions None needed. Anesthesia/Patient Condition Patient is doing well, no complaints, stable vital signs, no apparent adverse anesthesia problems. JOSÉ MANUEL HANEY DO Jun 07, 2020 13:38
[2020-06-07 17:04] VITALS: BP 122/70
[2020-06-08] MEDS: IBUPROFEN 800 MG (MOTRIN) TAB PO SCH ×3 (00:04→12:54)
[2020-06-08] MEDS: DOCUSATE SODIUM 100 MG (COLACE) CAP PO SCH ×2 (00:04→09:12)
[2020-06-08 00:58] VITALS: BP 117/60
[2020-06-08 05:11] VITALS: BP 110/54
[2020-06-08 09:11] VITALS: BP 114/55
--- NOTE | 2020-06-08 09:11 | Progress Note ---
Standard Progress Note Progress Notes/Assess & Plan Date Seen by a Provider: Jun 08, 2020 Time Seen by a Provider: 09:11 Progress/Assessment & Plan Patient is without complaint. She is comfortable with the epidural. She has been on Pitocin now with the rate increased to 40 milliunits per minute -at this point we have discontinued Pitocin to allow the patient and the baby to rest. A lengthy discussion regarding management options at this point. Her cervical exam is right at 3 cm 80% or so effaced the presenting part is showed good descent through the day down now to about a -1 station. I think the situation appears favorable for vaginal delivery which is what the patient would prefer. She does understand there is a potential for at any time for indications or maternal indications and/or eventually if she does fail to make adequate progress in labor. Plan I will discontinue the Pitocin for several hours to allow the patient to rest better have a meal and then resume the Pitocin for an abbreviated type serial induction. heart rate has been category 1 throughout the day patient has tolerated labor well particularly after placement of the epidural and patient is happy with and agrees with this plan. Lab work is as follows Laboratory Tests 06/05/20 07:31 Vitals are as follows Vital Signs Date Time Temp Pulse Resp B/P (MAP) Pulse Ox O2 Delivery O2 Flow Rate FiO2 06/05/20 17:30 99 18 119/60 (79) 98 Room Air 06/05/20 17:15 105 18 119/59 (79) 98 Room Air 06/05/20 17:00 89 18 106/65 (79) 98 Room Air 06/05/20 16:45 100 18 112/55 (74) 99 Room Air 06/05/20 16:30 86 18 112/55 (74) 99 Room Air 06/05/20 16:15 103 18 118/65 (82) 99 Room Air 06/05/20 16:00 101 18 120/57 (78) 98 Room Air 06/05/20 15:45 96 18 106/58 (74) 98 Room Air 06/05/20 15:40 97 18 107/57 (74) 96 Room Air 06/05/20 15:35 97 18 118/60 (79) 98 Room Air 06/05/20 15:30 91 18 113/56 (75) 98 Room Air 06/05/20 15:25 94 18 115/56 (75) 98 Room Air 06/05/20 15:20 106 18 119/56 (77) 98 Room Air 06/05/20 15:15 99 18 116/56 (76) 98 Room Air 06/05/20 15:10 103 18 122/69 (86) 98 Room Air 06/05/20 15:05 96 18 113/64 (80) 98 Room Air 06/05/20 15:00 92 18 135/69 (91) Room Air 06/05/20 14:45 96 18 125/73 (90) Room Air 06/05/20 14:30 Room Air 06/05/20 14:15 90 18 133/63 (86) Room Air 06/05/20 14:00 90 18 126/71 (89) Room Air 06/05/20 13:45 88 18 134/78 (96) Room Air 06/05/20 13:30 87 18 123/72 (89) Room Air 06/05/20 13:15 93 18 132/73 (92) Room Air 06/05/20 13:00 111 18 119/60 (79) Room Air 06/05/20 12:45 100 18 123/59 (80) Room Air 06/05/20 12:30 107 18 127/65 (85) Room Air 06/05/20 12:15 102 18 116/62 (80) Room Air 06/05/20 12:00 90 18 113/71 (85) Room Air 06/05/20 11:45 110 18 112/57 (75) Room Air 06/05/20 11:30 100 18 120/56 (77) Room Air 06/05/20 11:15 106 18 118/57 (77) Room Air 06/05/20 11:08 37.1 06/05/20 11:00 98 18 130/57 (81) Room Air 06/05/20 10:45 99 18 130/63 (85) Room Air 06/05/20 10:30 96 18 120/79 (93) Room Air 06/05/20 10:15 86 18 113/57 (75) Room Air 06/05/20 10:00 96 18 110/56 (74) Room Air 06/05/20 09:45 96 18 110/56 (74) Room Air 06/05/20 09:30 91 18 112/56 (74) Room Air 06/05/20 09:15 18 Room Air 06/05/20 09:00 91 18 119/66 (83) Room Air 06/05/20 08:45 94 18 123/73 (90) Room Air 06/05/20 08:30 95 18 123/73 (90) Room Air 06/05/20 08:15 95 18 123/73 (90) Room Air 06/05/20 08:00 95 18 123/73 (90) Room Air 06/05/20 07:23 36.9 103 18 98 Room Air 06/05/20 07:23 36.9 103 18 130/74 (92) 98 Room Air Abdomen is benign Pelvic exam shows a cervix right at 3 cm dilated somewhat stretchy and flexible, presenting part is the vertex at -1 station, cervix is anterior and soft Assessment and plan day 1 Pitocin induction of labor in a patient with systemic lupus erythematosus was stable on her Plaquenil. Plan is as noted above we do anticipate a vaginal delivery would be prepared for June 06, 2020 Patient has labored through the night reached 40 milliunits/min on Pitocin and failed to make any significant progress. Pitocin has now been discontinued in favor of proceeding with delivery. There is a scheduled for this morning and we will be in line to follow that Patient understands indications for as well as risk complications recovery and follow-up. is pending at this time June 08, 2020 See discharge summary Final Diagnosis 38-week primary delivery SALLIE VELASQUEZ MD Jun 08, 2020 09:11
[2020-06-08] MEDS: oxyCODONE/APAP 10/325MG (PERCOCET 10) TABLET PO PRN ×2 (09:13→12:53)
--- NOTE | 2020-06-08 09:15 | Discharge Summary ---
Discharge Summary 38-week primary delivery This patient is a 24-year-old 1 white female who was admitted for labor induction at 38 weeks gestation due to systemic lupus erythematosus in . Her disease has been stable on Plaquenil. She is admitted for labor induction on June 05, 2020. Through the day on Pitocin she did dilate to little more than 3 cm after about 8 hours of labor. Pitocin was halted to allow her to rest it was resumed after several hours and again she progressed minimally in spite of adequate contractions. After again 8 hours of Pitocin and reaching 40 milliunits/min and the cervix dilated only to about 4 cm decision was made to proceed with . The morning of June 06, 2020 patient was taken to the operating room for primary delivery. The procedure was uncomplicated patient recovered uneventfully. On postoperative day #1 the patient was ambulating, voiding, tolerating oral intake well and had good pain control. She was stable through the day. Now on postoperative day #2 patient again is ambulating well voiding well tolerating oral intake well has good pain control. Patient is requesting discharge home. Principal diagnosis this hospitalization is 38-week primary delivery. Secondary diagnoses are systemic lupus erythematosus in , 38-week gestation, failure to progress in labor, CPD, deep transverse arrest. Operations and procedures include Pitocin induction of labor, epidural analgesia, IV fluid, primary delivery. Patient was given appropriate discharge instructions verbally and in writing and a copy of those were placed in the chart. Discharge medications are Percocet, Motrin, and Colace. Patient is continue her home vitamins and her home Plaquenil SALLIE VELASQUEZ MD Jun 08, 2020 09:15
[2020-06-11] MEDS ORDERED: IBUPROFEN 800 MG (MOTRIN) TAB PO SCH (11:15)
== END 2020-06-08 15:15 | disposition home or self-care (01) | DRG 788 ==
LOC: LDRP 07:02
PROVIDERS: ADMIT Obstetrics & Gynecology; ATTEND Obstetrics & Gynecology
PROC: 10D00Z1 Extraction of Products of Conception, Low, Open Approach (ICD-10-PCS; principal; 2020-06-06 10:12)
DX: O75.89 Other specified complications of labor and delivery (principal); M32.9 Systemic lupus erythematosus, unspecified; Z3A.38 38 weeks gestation of pregnancy; Z37.0 Single live birth; O62.0 Primary inadequate contractions; O64.0XX0 Obstructed labor due to incomplete rotation of fetal head, not applicable or unspecified; O33.9 Maternal care for disproportion, unspecified
CPT/HCPCS: 36415; 85025; 86850; 86900; 86901; 87070; 87075; 87205; 90715; 94664